=== PATIENT | male | born 1980 | race Caucasian/White ===

== ENCOUNTER 2019-12-26 19:10 | Emergency (ER) | payer BC, MEDICAID ==
[~2019-12-26] VITALS: Ht 177.8 cm; Wt 79.0 kg
[2019-12-26 19:11] VITALS: BP 123/76
[2019-12-26] MEDS ORDERED: MAGIC MOUTHWASH SUSPENSION BTL SSP STA (19:29)
[2019-12-26] MEDS ORDERED: NORCO 5/325MG TABLET (BULK FOR ED) PO ONE (19:30)
[2019-12-26] MEDS ORDERED: AUGMENTIN 875 MG TAB PO ONE (19:30)
[2019-12-26] MEDS ORDERED: ANBE20GE TOP (19:32)
[2019-12-26] MEDS ORDERED: AUGM875T28 PO (19:32)
[2019-12-26] MEDS ORDERED: MAGICMW SSP (19:32)
[2019-12-26] MEDS ORDERED: NORC1TAB7 PO (19:32)
== END 2019-12-26 19:57 | disposition home or self-care (01) ==
LOC: M ED 19:10
DX: K04.7 Periapical abscess without sinus (principal)

== ENCOUNTER → 2024-11-01 | Outpatient (REF) | payer MEDICAID, OTHER ==
[~2024-11-01] MED LIST: ANBE20GE TOP; AUGM875T28 PO; MAGICMW SSP; NORC1TAB7 PO
[2024-11-01 15:27] LABS: HEMATOCRIT 49.1 % (42.0-52.0); HEMOGLOBIN 15.8 g/dl (13.5-17.5); MEAN CORPUSCULAR HEMOGLOBIN 28.6 pg (27.0-33.0); MEAN CORPUSCULAR HGB CONC 32.2 g/dl (32.0-36.5); MEAN CORPUSCULAR VOLUME 88.8 fl (80.0-96.0); PLATELET COUNT, AUTOMATED 233 10^3/uL (150-450); RED BLOOD COUNT 5.53 10^6/uL (4.30-6.10); WHITE BLOOD COUNT 11.2 10^3/uL (4.0-10.0)
[2024-11-01 15:41] LABS: ALBUMIN 4.3 G/DL (3.2-5.2); ALKALINE PHOSPHATASE 67 U/L (40-129); ALT/SGPT 31 U/L (7.0-40); AST/SGOT 12 U/L (<34); BILIRUBIN,TOTAL 0.5 MG/DL (0.3-1.2); BLOOD UREA NITROGEN 14 MG/DL (9-23); CALCIUM LEVEL 9.2 MG/DL (8.5-10.1); CARBON DIOXIDE LEVEL 29 MMOL/L (20-31); CHLORIDE LEVEL 105 MMOL/L (98-107); CHOLESTEROL LEVEL 180 MG/DL (<200); CHOLESTEROL RISK RATIO 4.67 (<5); CREATININE FOR GFR 0.86 MG/DL (0.70-1.30); GLOMERULAR FILTRATION RATE > 60.0 (>60); GLUCOSE, FASTING 87 MG/DL (60-100); HDL CHOLESTEROL 38.5 MG/DL (>40); HEMOGLOBIN A1c 5.5 % (4.0-6.0); LDL CHOLESTEROL 116.3 MG/DL (<100); NON-HDL-C 141.5 MG/DL; POTASSIUM SERUM 4.7 MMOL/L (3.5-5.1); SODIUM LEVEL 142 MMOL/L (136-145); TOTAL PROTEIN 7.5 G/DL (5.7-8.2); TRIGLYCERIDES LEVEL 126 MG/DL (<150)
[2024-11-01 15:43] LABS: THYROID STIMULATING HORMONE 3.423 uIU/ML (0.55-4.78)
[2024-11-01 15:44] LABS: TOTAL 25(OH) VITAMIN D 18.8 NG/ML (20.0-100.0)
== END ==
LOC: M LAB REF 12:39
PROVIDERS: ATTEND Student in an Organized Health Care Education/Training Program
DX: Z00.01 Encounter for general adult medical examination with abnormal findings (principal)

== ENCOUNTER → 2024-11-23 | Outpatient (CLI) | payer OTHER | LOC: M RAD 12:01 | PROVIDERS: ATTEND Student in an Organized Health Care Education/Training Program | DX: R22.31 Localized swelling, mass and lump, right upper limb (principal) ==

== ENCOUNTER 2025-03-15 06:39 | Day surgery (SDC) | payer OTHER ==
[~2025-03-15] VITALS: Ht 177.8 cm; Wt 79.8 kg
[2025-03-15] MEDS ORDERED: LIDOCAINE 2% 100 MG/5 ML SDV (FOR ANES.) As Ordered ONE (06:50)
[2025-03-15 08:00] VITALS: BP 120/78; TEMP 96.8; O2SAT 96
== END 2025-03-15 08:10 | disposition home or self-care (01) ==
LOC: M OPP 06:39
PROVIDERS: ATTEND Surgery
DX: Z12.11 Encounter for screening for malignant neoplasm of colon (principal); R19.5 Other fecal abnormalities; K21.00 Gastro-esophageal reflux disease with esophagitis, without bleeding; K44.9 Diaphragmatic hernia without obstruction or gangrene; K31.7 Polyp of stomach and duodenum; K30 Functional dyspepsia
CPT/HCPCS: 43239; 45378; 88305; J3010